=== PATIENT | female | born 1965 | race African-American/Black ===

== ENCOUNTER 2021-03-24 05:32 | Inpatient (IN) | payer OTHER ==
[2021-03-24] VITALS (11 sets, daily range): BP systolic 103–174; BP diastolic 75–110
[~2021-03-24] VITALS: Ht 162.6 cm; Wt 108.0 kg
[2021-03-24 05:48] LABS: BASE EXCESS ABG -14 mmol/L (-3-3); HCO3 ABG 16 mmol/L (21-28); PCO2 ABG 50 mmHg (35-46); PO2 ABG 109 mmHg (75-108); SAT O2 ABG 96 % (92-99)
--- NOTE | 2021-03-24 05:58 | RAD ---
EXAM: CHEST 1 VIEW History: Shortness of breath COMPARISON: None available. TECHNIQUE: Single portable radiograph of the chest FINDINGS: Mild cardiomegaly. Diffuse prominent appearing bilateral interstitial lung markings likely interstitial infiltrates or edema. There are scattered groundglass airspace opacities bilateral lung s. IMPRESSION: 1. Diffuse prominent appearing bilateral interstitial lung markings likely interstitial infiltrates or edema. 2. Scattered groundglass airspace opacities bilateral lungs likely atelectasis or infiltrates. Electronically signed by: Jordan Delgado MD (03/24/2021 5:55 AM) [id number]
--- NOTE | 2021-03-24 06:20 | ED.ADGEN ---
Past Medical History Past Medical History: Anxiety, CHF, COPD, Diabetes-Type II, Hypertension Past Surgical History: Other Additional Past Surgical Histo: unknown Smoking Status: Current Every Day Smoker Alcohol Use: Occasionally General Adult EDM: Chief Complaint: DYSPNEA/RESPIRATORY DISTRESS HPI: HPI: Patient is a 55-year-old female with past medical history of COPD, hypertension, cocaine abuse, congestive heart failure who presents to the emergency room complaining of sudden onset shortness of breath. Patient states that she used cocaine last night. She states when she went to bed she felt normal. She woke up suddenly unable to catch her breath. History is limited due to significant respiratory distress. According to EMS upon their arrival patient's pulse ox was in the 50s. They placed her on a CPAP and gave her a DuoNeb treatment. Her pulse ox increased to 68. Review of Systems: Review of Systems: Complete ROS is negative unless otherwise documented in HPI Current Medications: Current Medications Medications (Trade) Dose Ordered Sig/Madonna Start Time Stop Time Status Last Admin Dose Admin Nitroglycerin/ Dextrose 250 ml @ 0 mls/hr 1X ONCE 03/24/21 06:30 03/24/21 06:31 Allergies: Allergies: Allergies Coded Allergies Type Severity Reaction Last Updated Verified No Known Drug Allergies 03/24/21 No Physical Exam: PE: General: Awake, alert, severe distress HEENT: Atraumatic, EOMI, PERRL, airway patent, moist oral mucosa Neck: Supple, trachea midline Respiratory: Diffuse crackles, tripoding, accessory muscle use, respiratory distress CV: Tachycardia, no murmur, cap refill <2 GI: Soft, nondistended, nontender, no masses MSK: No obvious deformities Skin: Warm, dry, intact Neuro: Speech limited sensory and motor grossly intact, no focal deficits Psych: Anxious, not suicidal or homicidal Current Patient Data: Vital Signs: Vital Signs Date Time Temp Pulse Resp B/P (MAP) Pulse Ox O2 Delivery O2 Flow Rate FiO2 03/24/21 05:35 98.6 140 35 219/138 (165) 90 BiPAP/CPAP 98.6 EKG: EKG: [] Heart Score: C/O Chest Pain: N/A Risk Factors: Risk Factors: DM, Current or recent (<one month) smoker, HTN, HLP, family history of CAD, obesity. Risk Scores: Score 0 - 3: 2.5% MACE over next 6 weeks - Discharge Home Score 4 - 6: 20.3% MACE over next 6 weeks - Admit for Clinical Observation Score 7 - 10: 72.7% MACE over next 6 weeks - Early Invasive Strategies Radiology/Procedures: Radiology/Procedures: [] Course & Med Decision Making: Course & Med Decision Making Pertinent Labs and Imaging studies reviewed. (See chart for details) Patient is a 55-year-old female who presents to the emergency room with sudden onset severe respiratory distress. Upon arrival patient is on CPAP satting 68%. On auscultation of lung peguero patient has diffuse crackles and has significant hypertension. Given this I am concerned for flash pulmonary edema which could be related to her cocaine abuse. Patient was placed on BiPAP and a nitro drip. Set up was done for intubation if BiPAP failed but was not needed. Patient does have significant respiratory acidosis on her ABG. She significantly improved on BiPAP after 15 minutes. Chest x-ray shows severe pulmonary edema. She has had both Covid vaccines. Patient was discussed with oncoming physician Dr. Gallegos who will assume care. Dragon Disclaimer: Dragon Disclaimer: This electronic medical record was generated, in whole or in part, using a voice recognition dictation system. Critical Care Time Critical Care: Authorized and Performed by: Mary Ochoa MD Total critical care time: approximately 45 minutes Due to a high probability of clinically significant, life threatening deterioration, the patient required my highest level of preparedness to intervene emergently and I personally spent this critical care time directly and personally managing the patient. This critical care time included obtaining a history; examining the patient; pulse oximetry; ventilator management if necessary; ordering and review of studies; arranging urgent treatment with development of a management plan; evaluation of patient's response to treatment; frequent reassessment; discussion with patient/family; and, discussions with other providers. This critical care time was performed to assess and manage the high probability of imminent, life-threatening deterioration that could result in multi-organ failure. It was exclusive of separately billable procedures and treating other patients and teaching time. Please see MDM section and the rest of the note for further information on patient assessment and treatment. Departure Departure Impression: Primary Impression: Respiratory failure with hypoxia Additional Impressions: Flash pulmonary edema Hypertensive emergency Disposition: 09 ADMITTED INPATIENT Condition: GUARDED Referrals: NON,STAFF (PCP) Problem Qualifiers MARY OCHOA MD Mar 24, 2021 06:20
[2021-03-24 06:26] LABS: FIO2 ABG 100
[2021-03-24] MEDS ORDERED: NITROGLYCERIN PREMIX 250 ML IV ONE (06:30)
--- NOTE | 2021-03-24 06:48 | EKG ---
[facility] [address] [place] [address] Test Date: 2021-03-24 Test Time: 05:59:22 Pat Name: KAYLA MILLER Department: Room: Gender: F Supply Aide: : 1965 Requested By: MARY MILLER Order Number: [id number] Reading MD: Vince Ulloa MD Measurements Intervals Mcbrides Rate: 107 P: 60 UT: 112 QRS: 52 QRSD: 86 T: 81 QT: 344 QTc: 465 Interpretive Statements SINUS TACHYCARDIA ATRIAL PREMATURE COMPLEX(ES) Electronically Signed On 03-24-2021 8:41:10 CDT by Vince Ulloa MD
[2021-03-24] MEDS ORDERED: AZITHRMYCN 500MG IVPB FOR OMNI 250 ML IV ONE (07:00)
[2021-03-24] MEDS ORDERED: cefTRIAXone IV Push 1 GM VIAL. IVP ONE (07:00)
[2021-03-24] MEDS ORDERED: ASPIRIN CHEWABLE 81 MG TABLET. PO ONE (07:30)
--- NOTE | 2021-03-24 07:39 | PDOC1 ---
History and Physical Date of Admission Date of Admission DATE: 03/24/21 TIME: 07:32 Identification/Chief Complaint Chief Complaint Epigastric pain Source Source: Chart review, Patient History of Present Illness History of Present Illness Patient is a 55-year-old female past surgical history CAD, CHF, COPD, HTN, DM2, presents to the ED with complaints of epigastric pain since last night. She reports dull abdominal pain, 5/10. Upon arrival in the ED she was hypoxic on room air and hypotensive, BP 232/121 mmHg. chest x-ray admission showed diffuse prominent appearing bilateral interstitial lung markings likely interstitial infiltrates or edema. She was placed on nitroglycerin drip and BiPAP with improvement. ABG on admission showed pH 7.11, PCO2 50, PO2 109, sodium bicarb 16. She states she was recently treated at [facility] 1 month ago for new diagnosis of congestive heart failure. She states she currently does not have a PCP and has not been taking any of her home medications. She admits to daily tobacco abuse, and regular crack cocaine and alcohol use. He denies any nausea, vomiting, diarrhea, sore throat, fever. Past Medical History Past Medical History CHF, CAD, COPD, DM2, HTN, anxiety Past Surgical History Past Surgical History: No pertinent history Family History Family History: Coronary Artery Disease, Hypertension Social History Smoke: 1 pack per day ALCOHOL: social Drugs: Cocaine Current Problem List Problem List Problems Medical Problems: (1) Flash pulmonary edema Status: Acute (2) Hypertensive emergency Status: Acute (3) Respiratory failure with hypoxia Status: Acute Current Medications Current Medications Current Medications Nitroglycerin/ Dextrose 250 ml @ 0 mls/hr 1X ONCE IV Last administered on 03/24/21at 06:40; Start 03/24/21 at 06:30; Stop 03/24/21 at 06:31; Status DC Ceftriaxone Sodium (Rocephin) 1 gm 1X ONCE IVP Last administered on 03/24/21at 07:18; Start 03/24/21 at 07:00; Stop 03/24/21 at 07:01; Status DC Azithromycin 250 ml @ 250 mls/hr 1X ONCE IV Last administered on 03/24/21at 07:18; Start 03/24/21 at 07:00; Stop 03/24/21 at 07:59 Aspirin (Aspirin Chewable) 324 mg 1X ONCE PO Last administered on 03/24/21at 07:17; Start 03/24/21 at 07:30; Stop 03/24/21 at 07:31; Status DC Allergies Allergies: Coded Allergies: No Known Drug Allergies (Unverified , 03/24/21) ROS Review of System GENERAL: No history of weight change, weakness or fevers. SKIN: No bruising, hair changes or rashes. EYES: No blurred, double or loss of vision. NOSE AND THROAT: No history of nosebleeds, hoarseness or sore throat. HEART: Denies chest pain, denies palpitations. LUNGS: Denies cough, hemoptysis, wheezing or shortness of breath. GASTROINTESTINAL: Epigastric abdominal pain. Denies nausea, vomiting. GENITOURINARY: Denies dysuria, frequency, urgency, hematuria. NEUROLOGIC: Denies history of numbness, tingling, tremor or weakness. PSYCHIATRIC: Denies anxiety, denies depression. ENDOCRINE: No history of heat or cold intolerance, polyuria or polydipsia. EXTREMITIES: Denies muscle weakness, joint pain, pain on walking or stiffness. Physical Exam Physical Exam General: Alert, Oriented X3, Cooperative, mild distress HEENT: PERRLA, EOMI Lungs: Bibasilar crackles, Normal air movement Heart: RRR, no murmurs Cardiovascular: S1, S2 Abdomen: Normal bowel sounds, Soft, No tenderness Extremities: No clubbing, No cyanosis Skin: No rashes, No significant lesion Neuro: Normal speech, Normal tone, Sensation intact Psych/Mental Status: Mental status NL, Mood NL Vitals Vitals Vital Signs Date Time Temp Pulse Resp B/P (MAP) Pulse Ox O2 Delivery O2 Flow Rate FiO2 03/24/21 06:59 98 148/76 (100) 100 BiPAP/CPAP 03/24/21 06:32 35 03/24/21 05:35 98.6 98.6 Labs Labs Laboratory Tests Test 03/24/21 05:46 O2 Saturation 96 % (92-99) Arterial Blood pH 7.11 (7.35-7.45) Arterial Blood pCO2 at Patient Temp 50 mmHg (35-46) Arterial Blood pO2 at Patient Temp 109 mmHg (75-108) Arterial Blood HCO3 16 mmol/L (21-28) Arterial Blood Base Excess -14 mmol/L (-3-3) FiO2 100 Laboratory Tests Test 03/24/21 05:46 O2 Saturation 96 % (92-99) Arterial Blood pH 7.11 (7.35-7.45) Arterial Blood pCO2 at Patient Temp 50 mmHg (35-46) Arterial Blood pO2 at Patient Temp 109 mmHg (75-108) Arterial Blood HCO3 16 mmol/L (21-28) Arterial Blood Base Excess -14 mmol/L (-3-3) FiO2 100 Images Images PATIENT: KAYLA MILLER ACCOUNT: [id number] : 1965 LOCATION: ER AGE: 55 SEX: F EXAM STATUS: PRE ER ORD. PHYSICIAN: MARY MILLER MD REASON: sob PROCEDURE: CHEST AP ONLY EXAM: CHEST 1 VIEW History: Shortness of breath COMPARISON: None available. TECHNIQUE: Single portable radiograph of the chest FINDINGS: Mild cardiomegaly. Diffuse prominent appearing bilateral interstitial lung markings likely interstitial infiltrates or edema. There are scattered groundglass airspace opacities bilateral lungs. IMPRESSION: 1. Diffuse prominent appearing bilateral interstitial lung markings likely interstitial infiltrates or edema. 2. Scattered groundglass airspace opacities bilateral lungs likely atelectasis or infiltrates. VTE Prophylaxis Ordered VTE Prophylaxis Devices: No VTE Pharmacological Prophylaxi: Yes Assessment/Plan Assessment/Plan Acute respiratory failure with hypoxia Acute cocaine induced cardiomyopathy Pulmonary edema Healthcare associated pneumonia due to possible gram-negative or possible gram- positive organism CAD DM2 Plan: Continue treatment with BiPAP as needed and diurese patient Consultation placed to cardiology Will continue coverage for possible pneumonia with Rocephin and azithromycin; procalcitonin pending. Wean nitroglycerin drip as tolerated Resume home medications FEN - Cardiac diet PPX - Lovenox FULL CODE Dispo - inpatient for above Advance Care Planning: Total time spent [id number] with patient 16 minutes in discussion with goals of care, comfort care, end-of-life care, pain management, code status; patient names her daughter (Misty Laguna) as surrogate decision-maker. Justifications for Admission Other Justification AMERICA ROSEN MD Mar 24, 2021 07:39
[2021-03-24] MEDS ORDERED: ONDANSETRON PF 4 MG/2 ML VIAL. IV PRN (07:45)
[2021-03-24] MEDS ORDERED: ACETAMINOPHEN 325 MG TABLET. PO PRN ×2 (07:45→08:30)
[2021-03-24 07:58] LABS: CALCIUM 8.4 mg/dL (8.5-10.1); CREATININE 0.8 mg/dL (0.6-1.0); GFR 89.8; POTASSIUM 4.1 mmol/L (3.5-5.1)
[2021-03-24] MEDS ORDERED: MORPHINE SULFATE 4 MG/ML INJ. IV PRN (08:00)
[2021-03-24 08:04] LABS: ALBUMIN 3.1 g/dL (3.4-5.0); ALBUMIN/GLOBULIN RATIO 0.8 (1.0-1.7); TOTAL BILIRUBIN 0.2 mg/dL (0.2-1.0); TOTAL PROTEIN 6.9 g/dL (6.4-8.2)
[2021-03-24 08:07] LABS: BASO # 0.1 x10^3/uL (0.0-0.2); BASO % 1 % (0-3); EOS # 0.1 x10^3/uL (0.0-0.7); EOS % 1 % (0-3); HEMATOCRIT 37.7 % (36.0-47.0); HEMOGLOBIN 12.4 g/dL (12.0-15.5); LYMPH # 1.2 x10^3/uL (1.0-4.8); LYMPH % 10 % (24-48); MEAN CORPUSCULAR HEMOGLOBIN 30 pg (25-35); MEAN CORPUSCULAR HGB CONC 33 g/dL (31-37); MEAN CORPUSCULAR VOLUME 92 fL (79-100); MONO # 0.9 x10^3/uL (0.0-1.1); MONO % 7 % (0-9); NEUT # 10.2 x10^3/uL (1.8-7.7); NEUT % 82 % (31-73); PLATELET COUNT 281 x10^3/uL (140-400); RED CELL DISTRIBUTION WIDTH 14.2 % (11.5-14.5); WHITE BLOOD COUNT 12.5 x10^3/uL (4.0-11.0)
[2021-03-24] MEDS ORDERED: hydrALAZINE 20 MG/ML VIAL. IVP PRN (08:15)
[2021-03-24] MEDS ORDERED: MAGNESIUM HYDROXIDE 2,400 MG/30 ML ORAL.SUSP. PO PRN (08:30)
[2021-03-24] MEDS ORDERED: MAG HYDROX/ALUMINUM HYD/SIMETH 30 ML ORAL.SUSP PO PRN (08:30)
[2021-03-24] MEDS ORDERED: HYDROcodone/APAP 5/325MG 1 TAB TABLET PO PRN (08:30)
[2021-03-24] MEDS ORDERED: BISACODYL 10 MG SUPP.RECT. PR PRN (08:30)
[2021-03-24] MEDS ORDERED: FUROSEMIDE 20 MG/2 ML VIAL. IVP ONE (08:30)
[2021-03-24] MEDS ORDERED: ZOLPIDEM 5 MG TABLET. PO PRN (08:30)
[2021-03-24] MEDS ORDERED: ONDANSETRON PF 4 MG/2 ML VIAL. IVP PRN (08:30)
[2021-03-24] MEDS ORDERED: CALCIUM CARBONATE 500 MG TAB.CHEW PO PRN (08:30)
--- NOTE | 2021-03-24 08:48 | PDOC2 ---
CARDIOLOGY CONSULT NOTE DATE OF SERVICE: DATE: 03/24/21 TIME: 08:44 CHIEF COMPLAINT: SOA HPI: 55 y.o woman presenting for hypoxic resp failure. She has been told of a diagnosis of heart failure. Not taking meds. Did some crack and ended up in the ER with BP of 230. Currently on Bipap and on NTG gtt. Denies any chest pain. Has dyspnea. Initial EKG unremarkable. BNP elevated. Trop negative. PMHX: Presumed CMP Drug abuse. SOCHX: as above FAMHX: NC CURRENT MEDS: Current Medications Medications (Trade) Dose Ordered Sig/Madonna Route PRN Reason Start Time Stop Time Status Last Admin Dose Admin Nitroglycerin/ Dextrose 250 ml @ 0 mls/hr 1X ONCE IV 03/24/21 06:30 03/24/21 06:31 DC 03/24/21 06:40 Ceftriaxone Sodium (Rocephin) 1 gm 1X ONCE IVP 03/24/21 07:00 03/24/21 07:01 DC 03/24/21 07:18 Azithromycin 250 ml @ 250 mls/hr 1X ONCE IV 03/24/21 07:00 03/24/21 07:59 DC 03/24/21 07:18 Aspirin (Aspirin Chewable) 324 mg 1X ONCE PO 03/24/21 07:30 03/24/21 07:31 DC 03/24/21 07:17 ALLERGIES: Allergies Coded Allergies Type Severity Reaction Last Updated Verified No Known Drug Allergies 03/24/21 No ROS: Negative for 07/03 systems reviewed unless noted above in HPI PHYSICAL EXAM: Vital Signs/I&O: Vital Signs Date Time Temp Pulse Resp B/P (MAP) Pulse Ox O2 Delivery O2 Flow Rate FiO2 03/24/21 08:10 Non-Rebreather 03/24/21 08:05 96.7 113 35 174/96 (122) 98 96.7 Physical Exam: GEN.: Moderate distress from tachpynea. HEENT: Head is normocephalic, atraumatic NECK: Supple. LUNGS: Bilateral rhonchi HEART: RRR, S1, S2 present. Peripheral pulses intact ABDOMEN: Soft, nontender. Positive bowel sounds. EXTREMITIES: Without any cyanosis. NEUROLOGIC: Normal speech, normal tone PSYCHIATRIC: Normal affect, normal mood. SKIN: No ulcerations DIAGNOSTIC TESTING: EKG with sinus tachycardia. Lab Laboratory Tests Test 03/24/21 05:46 7/5/21 07:30 O2 Saturation 96 % (92-99) Arterial Blood pH 7.11 (7.35-7.45) *L Arterial Blood pCO2 at Patient Temp 50 mmHg (35-46) H Arterial Blood pO2 at Patient Temp 109 mmHg (75-108) H Arterial Blood HCO3 16 mmol/L (21-28) L Arterial Blood Base Excess -14 mmol/L (-3-3) L FiO2 100 White Blood Count 12.5 x10^3/uL (4.0-11.0) H Red Blood Count 4.10 x10^6/uL (3.50-5.40) Hemoglobin 12.4 g/dL (12.0-15.5) Hematocrit 37.7 % (36.0-47.0) Mean Corpuscular Volume 92 fL (79-100) Mean Corpuscular Hemoglobin 30 pg (25-35) Mean Corpuscular Hemoglobin Concent 33 g/dL (31-37) Red Cell Distribution Width 14.2 % (11.5-14.5) Platelet Count 281 x10^3/uL (140-400) Neutrophils (%) (Auto) 82 % (31-73) H Lymphocytes (%) (Auto) 10 % (24-48) L Monocytes (%) (Auto) 7 % (0-9) Eosinophils (%) (Auto) 1 % (0-3) Basophils (%) (Auto) 1 % (0-3) Neutrophils # (Auto) 10.2 x10^3/uL (1.8-7.7) H Lymphocytes # (Auto) 1.2 x10^3/uL (1.0-4.8) Monocytes # (Auto) 0.9 x10^3/uL (0.0-1.1) Eosinophils # (Auto) 0.1 x10^3/uL (0.0-0.7) Basophils # (Auto) 0.1 x10^3/uL (0.0-0.2) Sodium Level 142 mmol/L (136-145) Potassium Level 4.1 mmol/L (3.5-5.1) Chloride Level 107 mmol/L (98-107) Carbon Dioxide Level 25 mmol/L (21-32) Anion Gap 10 (6-14) Blood Urea Nitrogen 20 mg/dL (7-20) Creatinine 0.8 mg/dL (0.6-1.0) Estimated GFR (Cockcroft-Gault) 89.8 BUN/Creatinine Ratio 25 (6-20) H Glucose Level 125 mg/dL (70-99) H Lactic Acid Level 1.9 mmol/L (0.4-2.0) Calcium Level 8.4 mg/dL (8.5-10.1) L Total Bilirubin 0.2 mg/dL (0.2-1.0) Aspartate Amino Transf (AST/SGOT) 119 U/L (15-37) H Alkaline Phosphatase 165 U/L (46-116) H Total Protein 6.9 g/dL (6.4-8.2) Albumin 3.1 g/dL (3.4-5.0) L Albumin/Globulin Ratio 0.8 (1.0-1.7) L Laboratory Tests 03/24/21 07:30 ASSESSMENT: 1. Acute hypoxic resp failure due to hypertensive emergency 2. Drug abuse. 3. Presumed CMP PLAN: 1. Plan for IV lasix, NTG or cardene gtt from BP control. 2. Await OSH records. 3. Supportive care. Thanks. EDGARDO LLAMAS MD Mar 24, 2021 08:48
[2021-03-24 09:06] LABS: BILIRUBIN,URINE NEGATIVE (NEG); CLARITY,URINE CLEAR; COLOR,URINE YELLOW; NITRITE,URINE NEGATIVE (NEG); PROTEIN,URINE 100 mg/dL (NEG-TRACE)
[2021-03-24 09:12] LABS: AMPHETAMINE/METHAMPHETAMINE NEG (NEG); BARBITURATES NEG (NEG); BENZODIAZEPINES NEG (NEG); CANNABINOIDS NEG (NEG); COCAINE POS (NEG); METHADONE NEG (NEG); OPIATES NEG (NEG); PHENCYCLIDINE NEG (NEG)
[2021-03-24] MEDS: ENOXAPARIN 40 MG/0.4 ML SYRINGE. SQ SCH ×2 (09:15→21:41)
[2021-03-24] MEDS ORDERED: FUROSEMIDE 40 MG/4 ML VIAL. IVP ONE (09:30)
[2021-03-24 09:36] LABS: BACTERIA,URINE 0 /HPF (0-FEW); RBC,URINE 0 /HPF (0-2); WBC,URINE RARE /HPF (0-4)
--- NOTE | 2021-03-24 09:37 | NUR ---
Patient arrived on unit at 0805 accompanied by ED RN and RT. Patient alert and oriented, able to answer admission questions when asked. Patient has a cough and is short of air, said she got the covid vaccines while inpatient at [facility], records requested. Patient on bipap, titrated fio2. Dr. Ulloa and Dr. Blankenship notified of consults, orders received. Will continue to monitor.
[2021-03-24] MEDS: IPRATRPIUM/ALBUTEROL 0.5/2.5MG 3 ML NEBU. NEB SCH ×3 (10:06→20:54)
[2021-03-24 10:21] LABS: BASE EXCESS ABG -1 mmol/L (-3-3); HCO3 ABG 24 mmol/L (21-28); PCO2 ABG 41 mmHg (35-46); PO2 ABG 174 mmHg (75-108); SAT O2 ABG 99 % (92-99)
[2021-03-24 10:23] LABS: FIO2 ABG 60
--- NOTE | 2021-03-24 10:40 | CONS ---
DATE OF CONSULTATION: 03/24/2021 PULMONARY CONSULTATION ATTENDING PHYSICIAN: Aris Naqvi MD. REASON FOR CONSULTATION: Respiratory failure. HISTORY OF PRESENT ILLNESS: The patient is a 55-year-old obese patient with a BMI of 40. The patient also has a history of tobacco use. The patient presented to the hospital with dyspnea and hypoxic respiratory failure. She did crack cocaine. Her systolic blood pressure was 230 on admission. She had a chest x-ray which showed diffuse interstitial infiltrates. She has a mild cough. She denies any chest pain, no headaches, no nausea or vomiting, no diarrhea, no dysuria, no focal weakness. No history of deep vein thrombosis or pulmonary embolism. Her arterial blood gases reveal a pH of 7.11, pCO2 of 50 and a pO2 of 109 with a bicarbonate of 16. Her proBNP was elevated. Her urine drug screen was positive for cocaine. She is currently on BiPAP. She is down to 60% oxygen. She did receive Lasix. I have been asked to see her for further evaluation. PAST MEDICAL HISTORY: Significant for history of CHF, history of COPD, unknown FEV1, history of type 2 diabetes, hypertension. PAST SURGICAL HISTORY: No recent surgeries. ALLERGIES: None. SOCIAL HISTORY: Everyday smoker for the last 25+ years. REVIEW OF SYSTEMS: A 12-point system obtained. Pertinent positives discussed in my present illness, otherwise noncontributory. All systems that were negative were reviewed as well. MEDICATIONS: Reviewed as listed in the MRAD including antibiotics, Lovenox for DVT prophylaxis and she received Lasix. FAMILY HISTORY: Noncontributory to lungs. PHYSICAL EXAMINATION: VITAL SIGNS: Reviewed. Blood pressure improved. Pulse ox is 99%. HEENT: Sclerae nonicteric. NECK: Supple. LUNGS: With diminished breath sounds. CARDIOVASCULAR: With a regular rate. ABDOMEN: Soft, obese. EXTREMITIES: With no pitting edema. LABORATORY DATA: Reviewed. Her BUN is 20, creatinine 0.8. Liver function tests are elevated. ABGs were reviewed. White cell count 12.5, hemoglobin 12.4 and platelets are 281. IMPRESSION: 1. Acute hypoxic and hypercapnic respiratory failure secondary to acute lung injury from cocaine abuse as well as diastolic congestive heart failure. 2. Hypertensive urgency triggering diastolic congestive heart failure. 3. Abnormal chest x-ray with diffuse interstitial infiltrates, no significant pleural effusion. Likely acute injury related to cocaine. 4. Substance abuse. 5. Likely chronic obstructive pulmonary disease. 6. Underlying obesity. 7. Abnormal LFTs secondary to shock liver. RECOMMENDATIONS: 1. We will repeat arterial blood gases and if it shows improvement, then we will discontinue BiPAP and try oxygen. 2. We will recommend BiPAP at bedtime. 3. Smoking cessation counseling provided in addition to counseling about cocaine abuse. 4. Follow chest x-ray post-diuresis. 5. Antibiotics can be deescalated as clinically no signs of infection. 6. Needs to have optimal control of blood pressure as an outpatient. 7. PFTs as an outpatient. 8. DVT prophylaxis with Lovenox. 9. Discussed with RN and RT. We will follow along with you. Total critical care time 37 minutes including chart review, imaging studies and decision making. FELY DR: Bert TID: [id number] MTDD
[2021-03-25] VITALS (7 sets, daily range): BP systolic 155–194; BP diastolic 105–123
[2021-03-25 06:29] LABS: BASO # 0.1 x10^3/uL (0.0-0.2); BASO % 1 % (0-3); EOS # 0.2 x10^3/uL (0.0-0.7); EOS % 2 % (0-3); HEMATOCRIT 34.8 % (36.0-47.0); HEMOGLOBIN 11.5 g/dL (12.0-15.5); LYMPH # 3.5 x10^3/uL (1.0-4.8); LYMPH % 40 % (24-48); MEAN CORPUSCULAR HEMOGLOBIN 30 pg (25-35); MEAN CORPUSCULAR HGB CONC 33 g/dL (31-37); MEAN CORPUSCULAR VOLUME 91 fL (79-100); MONO # 0.7 x10^3/uL (0.0-1.1); MONO % 8 % (0-9); NEUT # 4.4 x10^3/uL (1.8-7.7); NEUT % 50 % (31-73); PLATELET COUNT 273 x10^3/uL (140-400); RED BLOOD COUNT 3.82 x10^6/uL (3.50-5.40); RED CELL DISTRIBUTION WIDTH 14.3 % (11.5-14.5); WHITE BLOOD COUNT 8.7 x10^3/uL (4.0-11.0)
[2021-03-25 06:42] LABS: CALCIUM 8.5 mg/dL (8.5-10.1); CREATININE 0.7 mg/dL (0.6-1.0); GFR 104.7; POTASSIUM 3.4 mmol/L (3.5-5.1)
[2021-03-25] MEDS: IPRATRPIUM/ALBUTEROL 0.5/2.5MG 3 ML NEBU. NEB SCH ×3 (07:19→15:31)
[2021-03-25] MEDS: ENOXAPARIN 40 MG/0.4 ML SYRINGE. SQ SCH (08:33)
[2021-03-25] MEDS ORDERED: AZITHROMYCIN 250 MG TABLET. PO SCH (09:00)
[2021-03-25] MEDS ORDERED: FUROSEMIDE 20 MG/2 ML VIAL. IVP SCH (09:00)
[2021-03-25] MEDS ORDERED: cefTRIAXone IV Push 1 GM VIAL. IVP SCH (09:00)
[2021-03-25] MEDS ORDERED: POTASSIUM BICARB 20 MEQ EFFERVESCENT TABLET. PO ONE (10:00)
--- NOTE | 2021-03-25 10:03 | PDOC ---
PULMONARY PROGRESS NOTES DATE: 03/25/21 TIME: 10:00 Subjective feels better, off bipap on canula Vitals Vital Signs Date Time Temp Pulse Resp B/P (MAP) Pulse Ox O2 Delivery O2 Flow Rate FiO2 03/25/21 08:33 92 03/25/21 08:10 Nasal Cannula 2.0 03/25/21 07:50 98.3 18 194/113 (140) 99 98.3 General: Alert, No acute distress Lungs: Clear Cardiovascular: S1 Abdomen: Soft Neuro Exam: Alert Extremities: No Edema Skin: Warm Labs Laboratory Tests Test 03/24/21 05:46 03/24/21 07:30 03/24/21 08:25 03/24/21 08:55 O2 Saturation 96 % (92-99) Arterial Blood pH 7.11 (7.35-7.45) Arterial Blood pCO2 at Patient Temp 50 mmHg (35-46) Arterial Blood pO2 at Patient Temp 109 mmHg (75-108) Arterial Blood HCO3 16 mmol/L (21-28) Arterial Blood Base Excess -14 mmol/L (-3-3) FiO2 100 White Blood Count 12.5 x10^3/uL (4.0-11.0) Red Blood Count 4.10 x10^6/uL (3.50-5.40) Hemoglobin 12.4 g/dL (12.0-15.5) Hematocrit 37.7 % (36.0-47.0) Mean Corpuscular Volume 92 fL (79-100) Mean Corpuscular Hemoglobin 30 pg (25-35) Mean Corpuscular Hemoglobin Concent 33 g/dL (31-37) Red Cell Distribution Width 14.2 % (11.5-14.5) Platelet Count 281 x10^3/uL (140-400) Neutrophils (%) (Auto) 82 % (31-73) Lymphocytes (%) (Auto) 10 % (24-48) Monocytes (%) (Auto) 7 % (0-9) Eosinophils (%) (Auto) 1 % (0-3) Basophils (%) (Auto) 1 % (0-3) Neutrophils # (Auto) 10.2 x10^3/uL (1.8-7.7) Lymphocytes # (Auto) 1.2 x10^3/uL (1.0-4.8) Monocytes # (Auto) 0.9 x10^3/uL (0.0-1.1) Eosinophils # (Auto) 0.1 x10^3/uL (0.0-0.7) Basophils # (Auto) 0.1 x10^3/uL (0.0-0.2) Sodium Level 142 mmol/L (136-145) Potassium Level 4.1 mmol/L (3.5-5.1) Chloride Level 107 mmol/L (98-107) Carbon Dioxide Level 25 mmol/L (21-32) Anion Gap 10 (6-14) Blood Urea Nitrogen 20 mg/dL (7-20) Creatinine 0.8 mg/dL (0.6-1.0) Estimated GFR (Cockcroft-Gault) 89.8 BUN/Creatinine Ratio 25 (6-20) Glucose Level 125 mg/dL (70-99) Lactic Acid Level 1.9 mmol/L (0.4-2.0) Calcium Level 8.4 mg/dL (8.5-10.1) Total Bilirubin 0.2 mg/dL (0.2-1.0) Aspartate Amino Transf (AST/SGOT) 119 U/L (15-37) Alanine Aminotransferase (ALT/SGPT) 85 U/L (14-59) Alkaline Phosphatase 165 U/L (46-116) Troponin I Quantitative 0.031 ng/mL (0.000-0.055) 0.036 ng/mL (0.000-0.055) TY-Zrm-I-Type Natriuretic Peptide 1994 pg/mL (0-124) Total Protein 6.9 g/dL (6.4-8.2) Albumin 3.1 g/dL (3.4-5.0) Albumin/Globulin Ratio 0.8 (1.0-1.7) Procalcitonin < 0.10 ng/mL (0.00-0.10) Urine Collection Type Unknown Urine Color Yellow Urine Clarity Clear Urine pH 6.0 (<5.0-8.0) Urine Specific Greig 1.020 (1.000-1.030) Urine Protein 100 mg/dL (NEG-TRACE) Urine Glucose (UA) 500 mg/dL (NEG) Urine Ketones (Stick) Negative mg/dL (NEG) Urine Blood Negative (NEG) Urine Nitrite Negative (NEG) Urine Bilirubin Negative (NEG) Urine Urobilinogen Dipstick 1.0 mg/dL (0.2 mg/dL) Urine Leukocyte Esterase Negative (NEG) Urine RBC 0 /HPF (0-2) Urine WBC Rare /HPF (0-4) Urine Squamous Epithelial Cells Few /LPF Urine Bacteria 0 /HPF (0-FEW) Urine Opiates Screen Neg (NEG) Urine Methadone Screen Neg (NEG) Urine Barbiturates Neg (NEG) Urine Phencyclidine Screen Neg (NEG) Urine Amphetamine/Methamphetamine Neg (NEG) Urine Benzodiazepines Screen Neg (NEG) Urine Cocaine Screen Pos (NEG) Urine Cannabinoids Screen Neg (NEG) Urine Ethyl Alcohol Neg (NEG) Test 03/24/21 10:10 03/24/21 11:45 03/24/21 17:04 03/24/21 20:30 O2 Saturation 99 % (92-99) Arterial Blood pH 7.39 (7.35-7.45) Arterial Blood pCO2 at Patient Temp 41 mmHg (35-46) Arterial Blood pO2 at Patient Temp 174 mmHg (75-108) Arterial Blood HCO3 24 mmol/L (21-28) Arterial Blood Base Excess -1 mmol/L (-3-3) FiO2 60 Troponin I Quantitative 0.034 ng/mL (0.000-0.055) Glucose (Fingerstick) 103 mg/dL (70-99) 124 mg/dL (70-99) Test 03/25/21 06:05 03/25/21 08:10 White Blood Count 8.7 x10^3/uL (4.0-11.0) Red Blood Count 3.82 x10^6/uL (3.50-5.40) Hemoglobin 11.5 g/dL (12.0-15.5) Hematocrit 34.8 % (36.0-47.0) Mean Corpuscular Volume 91 fL (79-100) Mean Corpuscular Hemoglobin 30 pg (25-35) Mean Corpuscular Hemoglobin Concent 33 g/dL (31-37) Red Cell Distribution Width 14.3 % (11.5-14.5) Platelet Count 273 x10^3/uL (140-400) Neutrophils (%) (Auto) 50 % (31-73) Lymphocytes (%) (Auto) 40 % (24-48) Monocytes (%) (Auto) 8 % (0-9) Eosinophils (%) (Auto) 2 % (0-3) Basophils (%) (Auto) 1 % (0-3) Neutrophils # (Auto) 4.4 x10^3/uL (1.8-7.7) Lymphocytes # (Auto) 3.5 x10^3/uL (1.0-4.8) Monocytes # (Auto) 0.7 x10^3/uL (0.0-1.1) Eosinophils # (Auto) 0.2 x10^3/uL (0.0-0.7) Basophils # (Auto) 0.1 x10^3/uL (0.0-0.2) Sodium Level 144 mmol/L (136-145) Potassium Level 3.4 mmol/L (3.5-5.1) Chloride Level 106 mmol/L (98-107) Carbon Dioxide Level 30 mmol/L (21-32) Anion Gap 8 (6-14) Blood Urea Nitrogen 12 mg/dL (7-20) Creatinine 0.7 mg/dL (0.6-1.0) Estimated GFR (Cockcroft-Gault) 104.7 Glucose Level 120 mg/dL (70-99) Calcium Level 8.5 mg/dL (8.5-10.1) Glucose (Fingerstick) 138 mg/dL (70-99) Laboratory Tests Test 03/24/21 10:10 03/24/21 11:45 03/24/21 17:04 03/24/21 20:30 O2 Saturation 99 % (92-99) Arterial Blood pH 7.39 (7.35-7.45) Arterial Blood pCO2 at Patient Temp 41 mmHg (35-46) Arterial Blood pO2 at Patient Temp 174 mmHg (75-108) Arterial Blood HCO3 24 mmol/L (21-28) Arterial Blood Base Excess -1 mmol/L (-3-3) FiO2 60 Troponin I Quantitative 0.034 ng/mL (0.000-0.055) Glucose (Fingerstick) 103 mg/dL (70-99) 124 mg/dL (70-99) Test 03/25/21 06:05 03/25/21 08:10 White Blood Count 8.7 x10^3/uL (4.0-11.0) Red Blood Count 3.82 x10^6/uL (3.50-5.40) Hemoglobin 11.5 g/dL (12.0-15.5) Hematocrit 34.8 % (36.0-47.0) Mean Corpuscular Volume 91 fL (79-100) Mean Corpuscular Hemoglobin 30 pg (25-35) Mean Corpuscular Hemoglobin Concent 33 g/dL (31-37) Red Cell Distribution Width 14.3 % (11.5-14.5) Platelet Count 273 x10^3/uL (140-400) Neutrophils (%) (Auto) 50 % (31-73) Lymphocytes (%) (Auto) 40 % (24-48) Monocytes (%) (Auto) 8 % (0-9) Eosinophils (%) (Auto) 2 % (0-3) Basophils (%) (Auto) 1 % (0-3) Neutrophils # (Auto) 4.4 x10^3/uL (1.8-7.7) Lymphocytes # (Auto) 3.5 x10^3/uL (1.0-4.8) Monocytes # (Auto) 0.7 x10^3/uL (0.0-1.1) Eosinophils # (Auto) 0.2 x10^3/uL (0.0-0.7) Basophils # (Auto) 0.1 x10^3/uL (0.0-0.2) Sodium Level 144 mmol/L (136-145) Potassium Level 3.4 mmol/L (3.5-5.1) Chloride Level 106 mmol/L (98-107) Carbon Dioxide Level 30 mmol/L (21-32) Anion Gap 8 (6-14) Blood Urea Nitrogen 12 mg/dL (7-20) Creatinine 0.7 mg/dL (0.6-1.0) Estimated GFR (Cockcroft-Gault) 104.7 Glucose Level 120 mg/dL (70-99) Calcium Level 8.5 mg/dL (8.5-10.1) Glucose (Fingerstick) 138 mg/dL (70-99) Impression . 1. Acute hypoxic and hypercapnic respiratory failure secondary to acute lung injury from cocaine abuse as well as diastolic congestive heart failure. 2. Hypertensive urgency triggering diastolic congestive heart failure. 3. Abnormal chest x-ray with diffuse interstitial infiltrates, no significant pleural effusion. Likely acute injury related to cocaine. 4. Substance abuse. 5. Likely chronic obstructive pulmonary disease. 6. Underlying obesity. 7. Abnormal LFTs secondary to shock liver. Plan . RECOMMENDATIONS: 1. oxygen. will need 6 min walk at dc 2. Needs optimization of BP per cardiology/ PCP 3. Smoking cessation counseling provided in addition to counseling about cocaine abuse. 4. Follow chest x-ray post-diuresis. 5. Antibiotics dc'd 6. Needs to have optimal control of blood pressure as an outpatient as well 7. PFTs as an outpatient. 8. DVT prophylaxis with Lovenox. 9. Discussed with ARDEN FRANKLIN MD Mar 25, 2021 10:03
[2021-03-25] MEDS ORDERED: SERTRALINE 25 MG TABLET. PO SCH (11:00)
[2021-03-25] MEDS ORDERED: OLANZapine 2.5 MG TABLET PO SCH (11:00)
[2021-03-25] MEDS ORDERED: hydrALAZINE 20 MG/ML VIAL. IVP ONE (11:00)
[2021-03-25] MEDS ORDERED: FUROSEMIDE 20 MG/2 ML VIAL. IVP ONE (11:45)
--- NOTE | 2021-03-25 11:55 | PDOC ---
YOVANI MARIA MORTGAGE COORDINATOR 03/25/21 1155: CARDIO Progress Notes Date and Time Date of Service 03/25/2021 Time of Evaluation 1120 Subjective Subjective: No Chest Pain, No shortness of breath, No Palpitations Vitals Vitals Vital Signs Date Time Temp Pulse Resp B/P (MAP) Pulse Ox O2 Delivery O2 Flow Rate FiO2 03/25/21 11:33 98 Room Air 03/25/21 11:19 98.3 18 179/111 (133) 2.0 98.3 03/25/21 11:18 95 Weight Weight [ ] Input and Output Intake and Output Intake and Output 03/25/21 07:00 Intake Total 1190 ml Output Total 4200 ml Balance -3010 ml Intake Oral 940 ml IV Total 250 ml Output Urine Total 4200 ml Laboratory Labs Laboratory Tests Test 03/24/21 11:45 03/24/21 17:04 03/24/21 20:30 03/25/21 06:05 Troponin I Quantitative 0.034 ng/mL (0.000-0.055) Glucose (Fingerstick) 103 mg/dL (70-99) 124 mg/dL (70-99) White Blood Count 8.7 x10^3/uL (4.0-11.0) Red Blood Count 3.82 x10^6/uL (3.50-5.40) Hemoglobin 11.5 g/dL (12.0-15.5) Hematocrit 34.8 % (36.0-47.0) Mean Corpuscular Volume 91 fL (79-100) Mean Corpuscular Hemoglobin 30 pg (25-35) Mean Corpuscular Hemoglobin Concent 33 g/dL (31-37) Red Cell Distribution Width 14.3 % (11.5-14.5) Platelet Count 273 x10^3/uL (140-400) Neutrophils (%) (Auto) 50 % (31-73) Lymphocytes (%) (Auto) 40 % (24-48) Monocytes (%) (Auto) 8 % (0-9) Eosinophils (%) (Auto) 2 % (0-3) Basophils (%) (Auto) 1 % (0-3) Neutrophils # (Auto) 4.4 x10^3/uL (1.8-7.7) Lymphocytes # (Auto) 3.5 x10^3/uL (1.0-4.8) Monocytes # (Auto) 0.7 x10^3/uL (0.0-1.1) Eosinophils # (Auto) 0.2 x10^3/uL (0.0-0.7) Basophils # (Auto) 0.1 x10^3/uL (0.0-0.2) Sodium Level 144 mmol/L (136-145) Potassium Level 3.4 mmol/L (3.5-5.1) Chloride Level 106 mmol/L (98-107) Carbon Dioxide Level 30 mmol/L (21-32) Anion Gap 8 (6-14) Blood Urea Nitrogen 12 mg/dL (7-20) Creatinine 0.7 mg/dL (0.6-1.0) Estimated GFR (Cockcroft-Gault) 104.7 Glucose Level 120 mg/dL (70-99) Calcium Level 8.5 mg/dL (8.5-10.1) Test 03/25/21 08:10 Glucose (Fingerstick) 138 mg/dL (70-99) Microbiology Micro Microbiology 03/24/21 Blood Culture - Preliminary, Resulted NO GROWTH AFTER 1 DAY Physical Exam HEENT: Neck Supple W Full Motion Chest: Symmetric LUNGS: Other (basilar crackles) Heart: RRR (SR) Abdomen: Soft N/T Extremities: Other (trace LE edema) Neurology: alert, oriented, follow commands Assessment Assessment 1. HTN urgency: labile 2. Acute systolic/diastolic CHF: improved 3. Tobaccoism 4. Substance abuse: UDS+ cocaine 5. NSVT: x1 6, Cardiomyopathy 7. DM2: per PCP 8. anxiety/depression: per PCP to f/u [facility] 9. Binge alcoholism: vodka Recommendations 1. Continue norvasc. Start on lisinopril and low dose coreg. Advise to stop cocaine. Lasix therapy 2. Encouraged to follow up in office. Will consider outpt ischemic workup if she is complaint and sober from cocaine 3. Check Mg and replace K 4. Smoking cessation, wt loss. ETOH cessation 5. ASA. FLP, statin per level Justicifation of Admission Dx: Justifications for Admission: Justification of Admission Dx: Yes EDGARDO LLAMAS MD 03/25/21 1802: CARDIO Progress Notes Plan Plan The patient was seen and interviewed as well as examined at the bedside. The chart was reviewed. The case was discussed. Agree with the plan of care. YOVANI MARIA APRN Mar 25, 2021 11:55 EDGARDO LLAMAS MD Mar 25, 2021 18:02
--- NOTE | 2021-03-25 12:11 | NUR ---
SS following for discharge planning. SS reviewed pt chart and discussed with pt RN. Pt is from home and is currently requiring oxygen at two liters nasal canula. Pt has no home oxygen. Positive for Cocaine. PAT team referral made for assessment and recommendations. Reid from PAT team met with pt today. Pt has history of anxiety, depression, and panic attacks. Pt also has ETOH. Pt non-compliant with services with [facility] and has been off medications. Pt scheduled with new med appointment at [facility]. Pt had ECHO today and is requesting to discharge today. Six minute walk ordered. SS will continue to follow for discharge planning.
[2021-03-25] MEDS ORDERED: CARVEDILOL 3.125 MG TABLET. PO SCH (12:30)
[2021-03-25 12:39] LABS: CHOLESTEROL/HDL RATIO 2.6
[2021-03-25] MEDS ORDERED: ASPIRIN ENTERIC COATED 81 MG TABLET.DR. PO SCH (13:00)
--- NOTE | 2021-03-25 13:32 | RAD ---
EXAM: XR CHEST 1V 03/25/2021 11:04 AM CLINICAL INDICATION: CHF COMPARISON: Chest radiograph 03/24/2021 TECHNIQUE: AP upright view of the chest FINDINGS: Cardiomegaly is unchanged. Pulmonary edema has resolved. No pleural effusion or pneumothor ax. No acute osseous abnormality. IMPRESSION: Interval resolution of pulmonary edema. Electronically signed by: Flora Galvan MD (03/25/2021 1:30 PM) [id number]
[2021-03-25] MEDS ORDERED: LISINOPRIL 20 MG TABLET PO SCH (14:45)
[2021-03-25] MEDS ORDERED: LISI-130 PO (15:33)
[2021-03-25] MEDS ORDERED: SERT-266 PO (15:33)
[2021-03-25] MEDS ORDERED: OLAN2.5T11 PO (15:33)
[2021-03-25] MEDS ORDERED: CARV3.1210 PO (15:33)
[2021-03-25] MEDS ORDERED: FURO40TA4 PO (15:33)
[2021-03-25] MEDS ORDERED: AMLO-187 PO (15:33)
[2021-03-25] MEDS ORDERED: POTA10TA12 PO (15:37)
[2021-03-25] MEDS ORDERED: ASPI-886 PO (15:37)
[2021-03-25] MEDS ORDERED: POTASSIUM CHLORIDE 20 MEQ TABLET.ER. PO ONE (16:00)
--- NOTE | 2021-03-25 16:00 | NUR ---
Alvarez catheter removed, no complications. Patient voided after removal
--- NOTE | 2021-03-25 16:21 | CARD ---
MR#: [id number] Date of Study: 03/25/2021 Ordering Physician: AMERICA ROSEN, Referring Physician: AMERICA ROSEN, Tech: Marcy Robles TARAN APPROVED REPORT EXAM: Two-dimensional and M-mode echocardiogram with Doppler and color Doppler. Other Information Quality : AverageHR: 105bpm Rhythm : Tachycardia INDICATION COPD Congestive Heart Failure RISK FACTORS Hypertension Obesity Hyperlipidemia 2D DIMENSIONS Left Atrium(2D)5.1 (1.6-4.0cm)IVSd1.1 (0.7-1.1cm) Aortic Root(2D)2.7 (2.0-3.7cm)LVDd5.1 (3.9-5.9cm) LVOT Diameter2.0 (1.8-2.4cm)PWd1.1 (0.7-1.1cm) IVSs1.3 (0.8-1.2cm)LVDs4.3 (2.5-4.0cm) FS (%) 14.8 %PWs1.4 (0.8-1.2cm) SV38.0 mlLVEF(%)31.3 (>50%) Aortic Valve AoV Peak Santhosh.158.9cm/sAoV VTI26.2cm AO Peak GR.10.1mmHgLVOT Peak Santhosh.88.7cm/s LVOT VTI 14.82cmAO Mean GR.6mmHg DELIA (VMAX)1.74ja4QKL (VTI)1.71cm2 AI P 1/2 Psnn301yq Mitral Valve MV E Cnyzwwlk580.6cm/sMV DECEL [id number] MV A Coheerry73.4cm/sMV NBI95tk E/A Ratio1.5MVA (PHT)5.23cm2 TDI E/Lateral E'15.8E/Medial E'18.1 Pulmonary Valve PV Peak Adomqqzn14.8cm/sPV Peak Grad.4mmHg Tricuspid Valve TR P. Wexocffq892tc/sTR Peak Gr.41mmHg LEFT VENTRICLE The left ventricle is normal size. There is mild concentric left ventricular hypertrophy. The systoli c function is mildly to moderately impaired. Estimated ejection fraction 35-40%. There is global hypo kinesis of the left ventricle. Transmitral Doppler flow pattern is Grade II-pseudonormal filling emilio mics. RIGHT VENTRICLE The right ventricle is normal size. There is normal right ventricular wall thickness. The right ventr icular systolic function is normal. ATRIA The left atrium is mildly dilated. The right atrium size is normal. The interatrial septum is intact with no evidence for an atrial septal defect or patent foramen ovale as noted on 2-D or Doppler imagi ng. AORTIC VALVE The aortic valve is calcified with restricted leaflet motion. Doppler and Color Flow revealed moderat e aortic regurgitation. There is no significant aortic valvular stenosis. MITRAL VALVE The mitral valve is mildly calcified with restricted leaflet motion. There is no evidence of mitral v alve prolapse. There is no mitral valve stenosis. Doppler and Color-flow revealed moderate mitral reg urgitation. TRICUSPID VALVE The tricuspid valve is normal in structure and function. Doppler and Color Flow revealed mild tricusp id regurgitation. Estimated PAP 40-45 mmHg. There is no tricuspid valve stenosis. PULMONIC VALVE Doppler and Color Flow revealed trace pulmonic valvular regurgitation. There is no pulmonic valvular stenosis. GREAT VESSELS The aortic root is normal in size. The ascending aorta is normal in size. The IVC is normal in size a nd collapses >50% with inspiration. PERICARDIAL EFFUSION There is no evidence of significant pericardial effusion. Critical Notification Critical Value: No <Conclusion> The systolic function is mildly to moderately impaired. Estimated ejection fraction 35-40%. There is global hypokinesis of the left ventricle. Doppler and Color Flow revealed moderate aortic regurgitation. Doppler and Color-flow revealed moderate mitral regurgitation. Doppler and Color Flow revealed mild tricuspid regurgitation. Estimated PAP 40-45 mmHg. Signed by : Vince Ulloa, Electronically Approved : 03/25/2021 16:20:46
--- NOTE | 2021-03-25 16:28 | PDOC3 ---
[facility]-Discharge Summary Date of Admission: Date of Admission: Mar 24, 2021 Date of Discharge: Date of Discharge: Mar 25, 2021 Admission Diagnosis: Admitting Diagnosis: HTN, Pulmonary edema Discharge Diagnosis: Discharge Diagnosis: HTN, Bipolar, MDD Consults: Consults: Pulm, Cardiology, PAT Hospital Course: Hospital Course: HPI from admission Patient is a 55-year-old female past surgical history CAD, CHF, COPD, HTN, DM2, presents to the ED with complaints of epigastric pain since last night. She reports dull abdominal pain, 5/10. Upon arrival in the ED she was hypoxic on room air and hypotensive, BP 232/121 mmHg. chest x-ray admission showed diffuse prominent appearing bilateral interstitial lung markings likely interstitial infiltrates or edema. She was placed on nitroglycerin drip and BiPAP with improvement. ABG on admission showed pH 7.11, PCO2 50, PO2 109, sodium bicarb 16. She states she was recently treated at [facility] 1 month ago for new diagnosis of congestive heart failure. She states she currently does not have a PCP and has not been taking any of her home medications. She admits to daily tobacco abuse, and regular crack cocaine and alcohol use. He denies any nausea, vomiting, diarrhea, sore throat, fever. Patient was initially admitted to the ICU and after receiving IV diuresis she had a significant amount of urine output up to 3 L and was clinically more stable. Her breathing did improve notably after her diuresis. Her blood pressure also notably improved with nicardipine drip which was able to be switched off I saw and examined the patient on her day of discharge March 25. She had been evaluated by cardiology and pulmonology today. Patient was also seen by inpatient psychiatry team and was started on Zoloft and Zyprexa as she previously had been on Viibryd and Saphris many years ago. Patient is to follow-up with [facility]. Also will need to establish with a primary care physician. Her blood pressure regimen was also altered as documented below. Disposition: Disposition/Orders: D/C to Home Activity: Activity: Resume previous activity Diet: Diet: Regular Medications: Home Meds Active Scripts Potassium Chloride (KLOR-CON 10) 10 Meq Tablet.er, 10 MEQ PO DAILYWBKFT for hypokalemia for 30 Days, #30 TAB.SR Prov:RYLIE RAMIREZ MD 03/25/21 Aspirin (ASPIRIN EC) 81 Mg Tablet.dr, 81 MG PO DAILYWBKFT for hypertension for 30 Days, #30 TAB.SR Prov:RYLIE RAMIREZ MD 03/25/21 Olanzapine (OLANZAPINE) 2.5 Mg Tablet, 2.5 MG PO DAILY for bipolar for 30 Days, #30 TAB Prov:RYLIE RAMIREZ MD 03/25/21 Furosemide (FUROSEMIDE) 40 Mg Tablet, 40 MG PO DAILY for hypertension for 30 Days, #30 TAB Prov:RYLIE RAMIREZ MD 03/25/21 Sertraline Hcl (SERTRALINE HCL) 25 Mg Tablet, 25 MG PO DAILY for depression for 30 Days, #30 TAB Prov:RYLIE RAMIREZ MD 03/25/21 Lisinopril (LISINOPRIL) 40 Mg Tablet, 40 MG PO DAILY for hypertension for 30 Days, #30 TAB Prov:RYLIE RAMIREZ MD 03/25/21 Amlodipine Besylate (AMLODIPINE BESYLATE) 10 Mg Tablet, 10 MG PO DAILY for hypertension for 30 Days, #30 TAB Prov:RYLIE RAMIREZ MD 03/25/21 Carvedilol (CARVEDILOL ) 3.125 Mg Tablet, 3.125 MG PO BIDWMEALS for hy pertension for 30 Days, #60 TAB Prov:RYLIE RAMIREZ MD 03/25/21 Scheduled Amlodipine Besylate (Amlodipine Besylate), 10 MG PO DAILY Aspirin (Aspirin Ec), 81 MG PO DAILYWBKFT Carvedilol (Carvedilol ), 3.125 MG PO BIDWMEALS Furosemide (Furosemide), 40 MG PO DAILY Lisinopril (Lisinopril), 40 MG PO DAILY Olanzapine (Olanzapine), 2.5 MG PO DAILY Potassium Chloride (Klor-Con 10), 10 MEQ PO DAILYWBKFT Sertraline Hcl (Sertraline Hcl), 25 MG PO DAILY Justicifation of Admission Dx: Justifications for Admission: Justification of Admission Dx: Yes RYLIE RAMIREZ MD Mar 25, 2021 16:28
--- NOTE | 2021-03-25 16:30 | NUR ---
Discharge: Teaching verbal and written. Reviewed medication, follow-up, CHF, SOA, cardiac diet, ECHO, ect. Patient vrbilized understanding. Several new medications, sent to pharmacy by physician, extensive teaching. IV's removed without complications, catheter tip in tact. All belongings with patient. Cab pass provided.
--- NOTE | 2021-03-25 17:59 | NUR ---
Nursing: Patient called and said prescriptions were not ready at [facility] and they did not receive any orders. I spoke with Dr. Garcia who was unable to transmit. I called in all prescriptions per dr Garcia
[2021-03-26] MEDS ORDERED: POTASSIUM CHLORIDE 10 MEQ TABLET.ER. PO SCH (08:00)
[2021-03-26] MEDS ORDERED: FUROSEMIDE 40 MG TABLET. PO SCH (09:00)
[2021-03-26] MEDS ORDERED: LISINOPRIL 20 MG TABLET PO SCH (09:00)
[2021-03-26] MEDS ORDERED: hydroCHLOROthiazide 25 MG TABLET PO SCH (09:00)
== END 2021-03-25 16:15 | disposition home or self-care (01) | DRG 917 ==
LOC: ER 05:32 → 1 WEST ICU 07:12 → 2 NORTH 15:05
PROVIDERS: ADMIT Family Medicine; ATTEND Family Medicine
PROC: 5A09357 Assistance with Respiratory Ventilation, Less than 24 Consecutive Hours, Continuous Positive Airway Pressure (ICD-10-PCS; principal; 2021-03-24)
DX: T40.5X1A Poisoning by cocaine, accidental (unintentional), initial encounter (principal); J96.02 Acute respiratory failure with hypercapnia; K72.00 Acute and subacute hepatic failure without coma; J96.01 Acute respiratory failure with hypoxia; J18.9 Pneumonia, unspecified organism; I50.41 Acute combined systolic (congestive) and diastolic (congestive) heart failure; Z68.41 Body mass index [BMI] 40.0-44.9, adult; J44.0 Chronic obstructive pulmonary disease with (acute) lower respiratory infection; I47.2 Ventricular tachycardia; I16.1 Hypertensive emergency; I42.7 Cardiomyopathy due to drug and external agent; I25.10 Atherosclerotic heart disease of native coronary artery without angina pectoris; E11.9 Type 2 diabetes mellitus without complications; F32.9 Major depressive disorder, single episode, unspecified; E66.9 Obesity, unspecified; I11.0 Hypertensive heart disease with heart failure; Y95 Nosocomial condition; Z82.49 Family history of ischemic heart disease and other diseases of the circulatory system; F41.9 Anxiety disorder, unspecified; F14.10 Cocaine abuse, uncomplicated; F10.20 Alcohol dependence, uncomplicated; F17.210 Nicotine dependence, cigarettes, uncomplicated; Y92.89 Other specified places as the place of occurrence of the external cause
CPT/HCPCS: 36415; 36600; 71045; 80048; 80053; 80061; 80307; 81001; 82805; 82962; 83605; 83735; 83880; 84145; 84484; 85025; 87040; 93005; 93306; 94618; 94640; 94660; 94760; 96365; 96368; J0360; J0456; J0696; J1650; J1940; J3490; 99291-25; G0378